=== PATIENT | female | born 1995 | race African-American/Black ===

== ENCOUNTER 2017-04-13 14:25 | Emergency (ER) | payer SELFPAY ==
[~2017-04-13] VITALS: Ht 165.1 cm; Wt 52.2 kg
[2017-04-13] MEDS ORDERED: Metoclopramide 10mg/2ml Inj IVP ONE (15:00)
[2017-04-13] MEDS ORDERED: DiphenhydrAMINE 50mg/ml Inj IVP ONE (15:00)
[2017-04-13 15:59] LABS: APPEARANCE,URINE CLOUDY; KETONES,URINE 4+ (NEGATIVE); LEUKOCYTE ESTERASE ,URINE NEGATIVE (NEGATIVE); NITRITE,URINE NEGATIVE (NEGATIVE); PH,URINE 5 (4.5-8.0); PROTEIN,URINE 2+ (NEGATIVE); UROBILINOGEN,URINE NORMAL MG/DL (0.0-1.0)
[2017-04-13 16:23] LABS: ALANINE AMINOTRANSFERASE 22 U/L (3-33); ALBUMIN/GLOBULIN RATIO 1.4 (1.0-2.7); ANION GAP 17 (5-15); ASPARTATE AMINO TRANSFERASE 24 U/L (5-40); CALCIUM 9.1 mg/dL (8.6-10.2); CARBON DIOXIDE 25 mEQ/L (20-30); CHLORIDE 97 mEQ/L (98-107); CREATININE 0.7 mg/dL (0.5-0.9); GLOMERULAR FILTRATION RATE > 60 mL/min (>60); HEMOLYSIS 5; LIPASE 24 U/L (< 60); POTASSIUM 3.7 mEQ/L (3.4-4.9); SODIUM 139 mEQ/L (135-145); TOTAL PROTEIN 7.7 g/dL (6.6-8.7)
[2017-04-13 16:26] LABS: SQUAMOUS EPITHELIAL CELL,UR FEW /LPF (NONE/OCC)
[2017-04-13 16:27] LABS: AMORPHOUS SEDIMENT,UR MODERATE /LPF; BACTERIA,URINE MODERATE /HPF
[2017-04-13 16:48] VITALS: BP 109/67
[2017-04-13 16:54] LABS: MEAN CORPUSCULAR HEMOGLOBIN 31.7 PG (27.0-31.0); MEAN CORPUSCULAR HGB CONC 34.9 G/DL (32.0-36.0); MEAN CORPUSCULAR VOLUME 91 FL (80-99); MEAN PLATELET VOLUME 10.9 FL (6.5-10.1); PLATELET COUNT 127 K/UL (150-450); RED BLOOD COUNT 4.49 M/UL (4.20-5.40); RED CELL DISTRIBUTION WIDTH 10.9 % (11.6-14.8); WHITE BLOOD COUNT 10.1 K/UL (4.8-10.8)
[2017-04-13 16:55] VITALS: BP 109/67
[2017-04-13] MEDS ORDERED: REGLAN10 MG ORAL (16:57)
[2017-04-13] MEDS ORDERED: TYLENOL EXTRA500 MG ORAL (16:57)
[2017-04-13 18:04] LABS: BAND NEUTROPHILS % (MANUAL) 4 % (0-8); BASOPHILS % (MANUAL) 0 % (0-2); EOSINOPHILS % (MANUAL) 0 % (0-3); LYMPHOCYTES % (MANUAL) 8 % (20-45); NEUTROPHILS % (MANUAL) 85 % (45-75); PLATELET ESTIMATE DECREASED; PLATELET MORPHOLOGY NORMAL; TOTAL CELLS COUNTED 100
--- NOTE | 2017-04-13 21:37 | Emergency Room Report ---
History of Present Illness General Chief Complaint: Abdominal Pain Source: Patient Present Illness HPI The patient is a 21-year-old female with a history of dairy allergy presenting for possible allergic reaction. The patient states that she consumed with cream last night by mistake and experienced nausea, vomiting, and diarrhea shortly after. She states that she is been unable to keep any liquids or solids down. He described as a 9/10 dull ache to the mid upper abdomen and does not radiate. Worse with vomiting. She denies F, chills, HANEY, dizziness, rash, SOB, swelling Allergies: Coded Allergies: Dairy (Verified Allergy, Unknown, 04/13/17) Patient History Past Medical History: see triage record Pertinent Family History: none Last Menstrual Period: 04/10/17 Now: No Reviewed Nursing Documentation: PMH: Agreed, PSxH: Agreed Review of Systems All Other Systems: negative except mentioned in HPI Physical Exam Vital Signs Date Time Temp Pulse Resp B/P Pulse Ox O2 Delivery O2 Flow Rate FiO2 04/13/17 14:37 97.9 101 17 101/61 98 Room Air Sp02 EP Interpretation: reviewed, normal General Appearance: no apparent distress, alert, GCS 15, non-toxic Head: normocephalic, atraumatic Eyes: bilateral eye PERRL, bilateral eye normal inspection ENT: hearing grossly normal, normal pharynx, no angioedema, normal voice Neck: full range of motion, supple, supple/symm/no masses Respiratory: chest non-tender, lungs clear, normal breath sounds, no wheezing, speaking full sentences Cardiovascular #1: regular rate, rhythm, no edema Gastrointestinal: soft, no mass, non-distended, no guarding, tenderness - epigastric Rectal: deferred Genitourinary: normal inspection, no CVA tenderness Musculoskeletal: back normal, gait/station normal, normal range of motion, non- tender Neurologic: alert, oriented x3, responsive, motor strength/tone normal, sensory intact, speech normal Psychiatric: judgement/insight normal, memory normal, mood/affect normal, no suicidal/homicidal ideation Skin: normal color, no rash, warm/dry, well hydrated Lymphatic: no adenopathy Medical Decision Making PA Attestation Dr. Hernandez is my supervising physician. Patient management was discussed with my supervising physician Diagnostic Impression: Primary Impression: Allergic reaction Qualified Codes: T78.40XA - Allergy, unspecified, initial encounter ER Course The patient is a 21-year-old female with a history of dairy allergy presenting for possible allergic reaction. Differential diagnoses considered include but not limited to allergic reaction, gastritis, appendicitis, , UTI PE: vitals WNL. NAD No angioedema. Oropharynx patent Abdomen is soft. Normal bowel sounds. Nondistended. TTP over epigastric region Skin warm and dry. No rash Labs unremarkable. Pt is given IV fluids, reglan, and benadryl and is feeling better. No vomiting in ER The patient is discharged home a prescription for Reglan and Tylenol and will followup with PMD. ER precautions given Laboratory Tests Test 04/13/17 15:15 White Blood Count 10.1 K/UL (4.8-10.8) Red Blood Count 4.49 M/UL (4.20-5.40) Hemoglobin 14.2 G/DL (12.0-16.0) Hematocrit 40.8 % (37.0-47.0) Mean Corpuscular Volume 91 FL (80-99) Mean Corpuscular Hemoglobin 31.7 PG (27.0-31.0) H Mean Corpuscular Hemoglobin Concent 34.9 G/DL (32.0-36.0) Red Cell Distribution Width 10.9 % (11.6-14.8) L Platelet Count 127 K/UL (150-450) L Mean Platelet Volume 10.9 FL (6.5-10.1) H Neutrophils (%) (Auto) % (45.0-75.0) Lymphocytes (%) (Auto) % (20.0-45.0) Monocytes (%) (Auto) % (1.0-10.0) Eosinophils (%) (Auto) % (0.0-3.0) Basophils (%) (Auto) % (0.0-2.0) Differential Total Cells Counted 100 Neutrophils % (Manual) 85 % (45-75) H Lymphocytes % (Manual) 8 % (20-45) L Monocytes % (Manual) 3 % (1-10) Eosinophils % (Manual) 0 % (0-3) Basophils % (Manual) 0 % (0-2) Band Neutrophils 4 % (0-8) Platelet Estimate Decreased L Platelet Morphology Normal Red Blood Cell Morphology Normal Urine Color Pale yellow Urine Appearance Cloudy Urine pH 5 (4.5-8.0) Urine Specific [place] 1.025 (1.005-1.035) Urine Protein 2+ (NEGATIVE) H Urine Glucose (UA) Negative (NEGATIVE) Urine Ketones 4+ (NEGATIVE) H Urine Occult Blood 4+ (NEGATIVE) H Urine Nitrite Negative (NEGATIVE) Urine Bilirubin Negative (NEGATIVE) Urine Urobilinogen Normal MG/DL (0.0-1.0) Urine Leukocyte Esterase Negative (NEGATIVE) Urine RBC 5-10 /HPF (0 - 2) H Urine WBC 2-4 /HPF (0 - 2) Urine Squamous Epithelial Cells Few /LPF (NONE/OCC) Urine Amorphous Sediment Moderate /LPF (NONE) H Urine Bacteria Moderate /HPF (NONE) H Urine HCG, Qualitative Negative Sodium Level 139 mEQ/L (135-145) Potassium Level 3.7 mEQ/L (3.4-4.9) Chloride Level 97 mEQ/L (98-107) L Carbon Dioxide Level 25 mEQ/L (20-30) Anion Gap 17 (5-15) H Blood Urea Nitrogen 21 mg/dL (7-23) Creatinine 0.7 mg/dL (0.5-0.9) Estimate Glomerular Filtration Rate > 60 mL/min (>60) Glucose Level 101 mg/dL (74-106) Calcium Level 9.1 mg/dL (8.6-10.2) Total Bilirubin 0.4 mg/dL (0.0-1.2) Aspartate Amino Transferase (AST) 24 U/L (5-40) Alanine Aminotransferase (ALT) 22 U/L (3-33) Alkaline Phosphatase 66 U/L (35-104) Total Protein 7.7 g/dL (6.6-8.7) Albumin 4.6 g/dL (3.5-5.2) Globulin 3.1 g/dL Albumin/Globulin Ratio 1.4 (1.0-2.7) Lipase 24 U/L (< 60) Lab Results Impression All unremarkable Last Vital Signs Date Time Temp Pulse Resp B/P Pulse Ox O2 Delivery O2 Flow Rate FiO2 04/13/17 16:55 97.9 115 18 109/67 100 Room Air Status: improved Disposition: HOME, SELF-CARE Condition: Improved Scripts Metoclopramide Hcl* (REGLAN*) 10 Mg Tablet 10 MG ORAL THREE TIMES A DAY, #15 TAB Prov: ESPERANZA REZA P.A. 04/13/17 Acetaminophen* (TYLENOL EXTRA STRENGTH*) 500 Mg Tablet 500 MG ORAL Q8H Y for Prn Headache/Temp > 101, #30 TAB 0 Refills Prov: ESPERANZA REZA 04/13/17 Patient Instructions: Nausea and Vomiting, Adult, Food Allergy, Food Choices to Help Relieve Diarrhea, Adult Additional Instructions: I discussed my findings with the patient. All questions and concerns have been answered. Treatment and medication compliance have been addressed. I advised the patient that they need to follow up with PMD in 3-5 days. Return to ED if symptoms worsen, new symptoms arise, or if needed for any reason. Patient verbalized understanding of discharge instructions. ESPERANZA REZA Apr 13, 2017 21:37
== END 2017-04-13 16:55 | disposition home or self-care (01) ==
LOC: EMR 15:20
DX: T78.1XXA Other adverse food reactions, not elsewhere classified, initial encounter (principal); X58.XXXA Exposure to other specified factors, initial encounter; Y93.9 Activity, unspecified; Y92.9 Unspecified place or not applicable; Z91.011 Allergy to milk products
CPT/HCPCS: 36415; 80053; 81003; 81025; 83690; 85007; 85025; 87086; 96360; 96374; 96375; 99284; J1200; J2765

== ENCOUNTER 2018-04-18 14:01 | Emergency (ER) | payer OTHER ==
[~2018-04-18] VITALS: Ht 162.6 cm; Wt 49.4 kg
[~2018-04-18 14:01] MED LIST: REGLAN10 MG ORAL; TYLENOL EXTRA500 MG ORAL
[2018-04-18 14:23] VITALS: BP 132/81
[2018-04-18] MEDS ORDERED: CYCLOBENZAPRINE10 MG ORAL (16:09)
[2018-04-18] MEDS ORDERED: IBUPROFEN600 MG ORAL (16:09)
[2018-04-18 16:27] VITALS: BP 135/79
[2018-04-18 16:28] VITALS: BP 135/79
--- NOTE | 2018-04-18 22:27 | Emergency Room Report ---
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 The patient was reportedly working when the several cases a bottle water fell onto her head. The patient reported possible brief loss of consciousness. She reported having increased pain to her neck. She denied any vomiting. She reported having some headache. The fall was from approximately 6-7 feet Allergies: Coded Allergies: Dairy (Verified Allergy, Unknown, 04/13/17) Patient History Past Medical History: none Last Menstrual Period: 03/22/18 Reviewed Nursing Documentation: PMH: Agreed; PSxH: Agreed Nursing Documentation-PMH Past Medical History: No History, Except For Review of Systems All Other Systems: negative except mentioned in HPI Physical Exam Vital Signs Date Time Temp Pulse Resp B/P (MAP) Pulse Ox O2 Delivery O2 Flow Rate FiO2 04/18/18 14:11 98.1 83 18 132/81 99 Room Air 98.1 Sp02 EP Interpretation: reviewed, normal General Appearance: normal inspection, alert, no apparent distress, GCS 15 Head: normocephalic, atraumatic Eyes: normal eye exam, PERRL, EOMI, lids + conjunctiva normal, no hyphema, no racoon eyes ENT: normal ENT inspection, TMs + canals normal, oropharynx normal, no cazares signs Neck: trach midline, other - lateral neck tenderness. Respiratory: effort normal, no retractions, clear to auscultation, chest symmetrical, palpation of chest normal, speaking in full sentences Cardiovascular: regular rate, rhythm, no JVD Cardiovascular #2: 2+ radial (R), 2+ radial (L), 2+ dorsalis pedis (R), 2+ dorsalis pedis (L) Gastrointestinal: normal inspection, non-tender, non-distended, no rebound/ guarding, normal bowel sounds Genitourinary: normal inspection Musculoskeletal: normal inspection, normal ROM, non-tender, back normal Skin: no rash, no lacerations, normal palpation Lymphatic: normal inspection Neurologic: normal inspection, CN II-XII intact, oriented x3, sensory intact, motor strength/tone normal, normal speech Psychiatric: normal inspection, memory normal, mood normal, no suicidal/ homicidal ideation Medical Decision Making Diagnostic Impression: Primary Impression: Head injury Additional Impression: Neck muscle strain ER Course Patient presented for headache. Differential diagnosis included wasn't limited to head injury, intracranial hemorrhage, hydrocephalus, cervical fracture, diffuse axonal injury among others.Because of complexity of patient's case imaging studies were ordered. The CT imaging of the head read by radiology showed no evidence of acute hemorrhage or fracture. CT of cervical spine read by radiology showed normal bony 1 without evident fracture. The patient was given prescription for ibuprofen as well as Flexeril. Urine test noted to be negative. The patient was advised not to work for 2 days. The patient is placed on light duty. The patient is advised follow-up with workers comp clinic for recheck. Labs Test 04/18/18 15:42 Urine HCG, Qualitative Negative (NEGATIVE) Last Vital Signs Date Time Temp Pulse Resp B/P (MAP) Pulse Ox O2 Delivery O2 Flow Rate FiO2 04/18/18 16:28 98.1 68 17 135/79 99 Room Air 98.1 Status: improved Disposition: HOME, SELF-CARE Condition: Stable Scripts Cyclobenzaprine Hcl* (FLEXERIL*) 10 Mg Tablet 10 MG ORAL TID PRN for Muscle Spasm, #20 TAB Prov: Alfredo Berg MD 04/18/18 Ibuprofen* (MOTRIN*) 600 Mg Tablet 600 MG ORAL Q8H PRN for For Pain, #30 TAB 0 Refills Prov: Alfredo Berg MD 04/18/18 Referrals: NON PHYSICIAN (PCP) Patient Instructions: Head Injury, Adult, Cervical Sprain, [id number] Alfredo Berg MD Apr 18, 2018 22:27
--- NOTE | 2018-04-19 08:24 | Diagnostic Imaging Report ---
Indication: Pain Technique: Continuous helical CT scanning of the head was performed utilizing automated exposure control without intravenous contrast material. Axial and coronal reconstructions were obtained. Comparison: None CT dose: Total DLP 1510.28 mGycm; CTDI vol 70.38,9.06 mGy Findings: There is no acute intracranial hemorrhage, midline shift, mass effect or cortical edema. The ventricles, cisterns and sulci are within normal limits for age. Visualized mastoid air cells and paranasal sinuses are unremarkable. No focal lesions of the bony calvarium or soft tissues of the scalp are seen. Impression: No evidence of acute intracranial hemorrhage, mass effect or cortical edema. MRI may be obtained for more sensitive evaluation as clinically indicated. No skull fracture. This corresponds with the statrad preliminary report. The CT scanner at [facility] is accredited by the [employer] and the scans are performed using protocols designed to limit radiation exposure to as low as reasonably achievable to attain images of sufficient resolution adequate for diagnostic evaluation.
--- NOTE | 2018-04-19 08:28 | Diagnostic Imaging Report ---
Indication: Pain Technique: CT cervical spine was performed utilizing automated exposure control without intravenous contrast material. Axial, sagittal and coronal images were generated. CT dose: Total DLP 1510.28 mGycm; CTDI vol 70.38,9.06 mGy Comparison: None Findings: There is no abnormal cervical curvature. The cervical lordosis is maintained. No evidence to suggest spondylolisthesis. No acute fracture identified. Vertebral body heights are within normal limits. Disc spaces appear within normal limits. No evidence of bony central canal or foraminal narrowing. Please note that the discs, central cord and nerve roots are better evaluated on MRI, which can be obtained for further evaluation as clinically indicated. No prevertebral soft tissue abnormality or fluid collection is identified. Mastoid air cells and visualized paranasal sinuses are clear. Imaged lung apices are unremarkable. IMPRESSION: No evidence of acute fracture or traumatic malalignment. This corresponds with the statrad preliminary report. The CT scanner at [facility] is accredited by the [employer] and the scans are performed using protocols designed to limit radiation exposure to as low as reasonably achievable to attain images of sufficient resolution adequate for diagnostic evaluation.
== END 2018-04-18 17:00 | disposition home or self-care (01) ==
LOC: EMR 16:30
DX: S09.8XXA Other specified injuries of head, initial encounter (principal); S16.1XXA Strain of muscle, fascia and tendon at neck level, initial encounter; W20.8XXA Other cause of strike by thrown, projected or falling object, initial encounter; Y92.512 Supermarket, store or market as the place of occurrence of the external cause; Y99.0 Civilian activity done for income or pay
CPT/HCPCS: 70450; 72125; 81025; 99284

== ENCOUNTER 2018-04-21 17:00 | Emergency (ER) | payer OTHER ==
[~2018-04-21] VITALS: Ht 165.1 cm; Wt 49.4 kg
[~2018-04-21 17:00] MED LIST changes: +CYCLOBENZAPRINE10 MG ORAL; +IBUPROFEN600 MG ORAL
[2018-04-21] MEDS ORDERED: LORATADINE10 M2 PO (17:09)
[2018-04-21 17:10] VITALS: BP 115/72
[2018-04-21] MEDS ORDERED: Acetaminophen 500mg (ES) tab ORAL ONE (17:45)
[2018-04-21] MEDS ORDERED: ROBAXIN-750750 MG PO (18:03)
[2018-04-21 18:16] VITALS: BP 114/72
[2018-04-21 18:18] VITALS: BP 115/73
--- NOTE | 2018-04-21 18:51 | Emergency Room Report ---
History of Present Illness General Chief Complaint: Headache Source: Patient Present Illness HPI 22-year-old female presents ED complaining of headache and neck pain. States that Thursday she was hit in the head by object at work. Patient was seen in ER that day. CT head and C-spine which were negative. Patient was discharged on ibuprofen and Flexeril. Patient states the medications are not helping. States pain is a 8 out of 10, dull, radiating from the scalp to the neck. Denies any photophobia or blurry vision. Denies nausea or vomiting. No other aggravating relieving factors. Denies any other associated symptoms Allergies: Coded Allergies: Dairy (Verified Allergy, Unknown, 04/13/17) Patient History Past Medical History: none Past Surgical History: none Pertinent Family History: none Social History: Denies: smoking, alcohol use, drug use Last Menstrual Period: 03/24/18 Now: No Immunizations: UTD Reviewed Nursing Documentation: PMH: Agreed; PSxH: Agreed Nursing Documentation-PMH Hx Asthma: Yes Review of Systems All Other Systems: negative except mentioned in HPI Physical Exam Vital Signs Date Time Temp Pulse Resp B/P (MAP) Pulse Ox O2 Delivery O2 Flow Rate FiO2 04/21/18 17:05 98.3 108 17 120/77 98 Room Air 98.2 Sp02 EP Interpretation: reviewed, normal General Appearance: no apparent distress, alert, GCS 15, non-toxic Head: normocephalic, other - TTP R scalp Eyes: bilateral eye normal inspection, bilateral eye PERRL ENT: normal ENT inspection Neck: full range of motion, supple, no meningismus, no bony tend, supple/symm/ no masses, tender lateral Respiratory: normal inspection Cardiovascular #1: normal inspection Gastrointestinal: normal inspection Rectal: deferred Genitourinary: no CVA tenderness Musculoskeletal: normal inspection Neurologic: alert, oriented x3, responsive, motor strength/tone normal, sensory intact, speech normal Psychiatric: normal inspection Skin: normal inspection Lymphatic: normal inspection Medical Decision Making Diagnostic Impression: Primary Impression: Head injury Qualified Codes: S09.90XD - Unspecified injury of head, subsequent encounter Additional Impression: Neck muscle strain Qualified Codes: S16.1XXD - Strain of muscle, fascia and tendon at neck level , subsequent encounter ER Course Hospital Course 22-year-old female presents ED complaining of headache and neck pain s/p falling object on head at work Differential diagnoses include: cspine injury, muscle strain, nasal bone Fx, concussion Clinical course Patient placed on stretcher. After initial history, my physical exam reveals a young female in no acute distress. There is tenderness to the right scalp and to the right side of the lateral neck. No C-spine tenderness. No focal neurological deficits. I reviewed EMR. Patient was seen 3 days ago here at [facility] [place] of head and C- spine which were negative. I see no indication to repeat imaging at this time. Reassurance given to the patient. We will change Flexeril to Robaxin. Recommend close follow-up with PMD Diagnosis - head injury, neck strain Stable and discharged to home with Rx Robaxin. continue motrin prn pain. Followup with PMD. Return to ED if symptoms recur or worsen Last Vital Signs Date Time Temp Pulse Resp B/P (MAP) Pulse Ox O2 Delivery O2 Flow Rate FiO2 04/21/18 18:18 98.5 73 17 115/73 100 Room Air Status: improved Disposition: HOME, SELF-CARE Condition: Stable Scripts Methocarbamol* (ROBAXIN-750*) 750 Mg Tablet 750 MG PO TID, #21 TAB 0 Refills Prov: Emil Nathan MD 04/21/18 Referrals: NOT CHOSEN IPA/,REFERRING (PCP) Patient Instructions: Head Injury, Pediatric Emil Nathan MD Apr 21, 2018 18:51
== END 2018-04-21 18:18 | disposition home or self-care (01) ==
LOC: EMR 17:38
DX: S09.8XXA Other specified injuries of head, initial encounter (principal); S16.1XXA Strain of muscle, fascia and tendon at neck level, initial encounter; W22.8XXA Striking against or struck by other objects, initial encounter; Y92.89 Other specified places as the place of occurrence of the external cause
CPT/HCPCS: 99283